=== PATIENT | male | born 1990 | race Caucasian/White ===

== ENCOUNTER 2016-09-03 17:21 | Emergency (ER) | payer SELFPAY ==
[~2016-09-03] VITALS: Ht 170.2 cm; Wt 86.2 kg
[~2016-09-03 17:21] MED LIST: HYDR-3816 PO; NAPR-243 PO; SULF1TAB35 PO; TRM50T PO
--- OUTSIDE RECORDS SUMMARY | 2016-09-03 17:26 | XMS REPORT ---
Author KULDIP Renteria e[employer] Address Unknown Phone Unavailable Care Team Providers Care National Account Executive Name Role Phone KULDIP YANG CP Unavailable Allergies, Adverse Reactions, Alerts Substance Reaction Event Type N.K.D.A. Info Not Available Non Drug Allergy Problems Problem Type Condition Code Onset Dates Condition Status Assessment Dental examination Z01.20 Active Problem Unspecified site of ankle sprain and strain 845.00 Active Problem Unspecified constipation 564.00 Active Problem Sprain and strain of unspecified site of knee and leg 844.9 Active Problem Cellulitis and abscess of unspecified site 682.9 Active Problem Closed fracture of metacarpal bone(s), site unspecified 815.00 Active Problem Esophageal reflux 530.81 Active Problem External hemorrhoids without mention of complication 455.3 Active Medications Medication Code System Code Instructions Start Date End Date Status Dosage [place] [facility] [address]-49 5-325 MG Orally every 6 hrs 1 tablet as needed Amoxicillin [facility] [id number] 500 MG Orally 4 times daily 1 capsule Procedures Procedure Coding System Code Date INTRAORL-PERIAPICAL 1 FILM 69019 CPT-4 D0220 Apr 18, 2016 BITEWING - SINGLE FILM CPT-4 D0270 Apr 18, 2016 LTD ORAL EVALUATION - PROBLEM FOCUS CPT-4 D0140 Apr 18, 2016 Billing Notes on claim CPT-4 EC109 Apr 18, 2016 Results No Known Results Summary Purpose eClinicalWorks Submission
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
[2016-09-03 17:50] LABS: MEAN PLATELET VOLUME 9.9 FL (7.4-10.4); RED BLOOD COUNT 4.2 10^6/uL (4.35-5.85); RED CELL DISTRIBUTION WIDTH 12.6 % (10.0-14.5); WHITE BLOOD COUNT 15.1 10^3/uL (4.3-11.0)
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
[2016-09-03 18:07] LABS: ALANINE AMINOTRANSFERASE 30 U/L (0-55); ALBUMIN 3.9 G/DL (3.2-4.5); ANION GAP 8 MMOL/L (5-14); ASPARTATE AMINO TRANSFERASE 21 U/L (5-34); BILIRUBIN,DIRECT 0.1 MG/DL (0.0-0.3); BILIRUBIN,INDIRECT 0.2 MG/DL; BILIRUBIN,TOTAL 0.3 MG/DL (0.1-1.0); BLOOD UREA NITROGEN 6 MG/DL (7-18); BUN/CREATININE RATIO 8; CALCIUM 8.2 MG/DL (8.5-10.1); CARBON DIOXIDE 22 MMOL/L (21-32); CHLORIDE 110 MMOL/L (98-107); CREATININE SERUM 0.78 MG/DL (0.60-1.30); GFR ESTIMATED > 60; GLUCOSE 97 MG/DL (70-105); SODIUM 140 MMOL/L (135-145); TOTAL PROTEIN 6.2 G/DL (6.4-8.2)
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
[2016-09-03 18:09] LABS: ALCOHOL < 10 MG/DL (<10)
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
[2016-09-03] MEDS ORDERED: morphine INJ 4 MG/ML 1 ML (VIAL/SYRINGE) IVP ONE (18:15)
[2016-09-03] MEDS ORDERED: morphine INJ 10 MG/ML 1ML (SYR OR VIAL) IVP ONE (18:30)
[2016-09-03 18:53] LABS: BILIRUBIN,URINE NEGATIVE (NEGATIVE); KETONES,URINE NEGATIVE (NEGATIVE); LEUKOCYTE ESTERASE ,URINE NEGATIVE (NEGATIVE); NITRITE,URINE NEGATIVE (NEGATIVE); PH,URINE 6 (5-9); PROTEIN,URINE NEGATIVE (NEGATIVE); UROBILINOGEN,URINE NORMAL (NORMAL)
[2016-09-03] MEDS ORDERED: KETOROLAC 30 MG/ML VIAL IVP ONE (19:00)
[2016-09-03] MEDS ORDERED: NAPR550T PO (19:43)
[2016-09-03] MEDS ORDERED: HYDR-3820 PO (19:43)
[2016-09-03 19:59] VITALS: BP 124/87
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
== END 2016-09-03 19:59 | disposition home or self-care (01) ==
LOC: EDUNIT# 17:21 → ER 17:22
DX: S06.9X9A Unspecified intracranial injury with loss of consciousness of unspecified duration, initial encounter (principal); S70.01XA Contusion of right hip, initial encounter; S00.81XA Abrasion of other part of head, initial encounter; S42.025A Nondisplaced fracture of shaft of left clavicle, initial encounter for closed fracture; V48.5XXA Car driver injured in noncollision transport accident in traffic accident, initial encounter; Y92.410 Unspecified street and highway as the place of occurrence of the external cause; Y99.8 Other external cause status
CPT/HCPCS: 36415; 70450; 71010; 72125; 72192; 73000; 73502; 80048; 80076; 80320; 81000; 85027; 93041; 96374; 96375

== ENCOUNTER 2016-09-10 12:27 | Emergency (ER) | payer SELFPAY ==
[~2016-09-10] VITALS: Ht 172.7 cm; Wt 86.2 kg
[~2016-09-10 12:27] MED LIST changes: +HYDR-3820 PO; +NAPR550T PO
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
[2016-09-10] MEDS ORDERED: HYDR-3820 PO (13:17)
[2016-09-10 13:22] VITALS: BP 120/89
== END 2016-09-10 13:22 | disposition home or self-care (01) ==
LOC: EDUNIT# 12:27 → ER 12:29
DX: S42.022A Displaced fracture of shaft of left clavicle, initial encounter for closed fracture (principal); F17.210 Nicotine dependence, cigarettes, uncomplicated; V43.52XA Car driver injured in collision with other type car in traffic accident, initial encounter; Y92.410 Unspecified street and highway as the place of occurrence of the external cause; Y99.8 Other external cause status
CPT/HCPCS: 73000

== ENCOUNTER 2016-09-16 05:38 | Outpatient (CLI) | payer SELFPAY ==
[~2016-09-16] VITALS: Ht 172.7 cm; Wt 86.2 kg
== END 2016-09-16 12:13 ==
LOC: PREOP 05:38
PROVIDERS: ATTEND Orthopaedic Surgery
DX: Z01.818 Encounter for other preprocedural examination (principal); S42.002A Fracture of unspecified part of left clavicle, initial encounter for closed fracture; Z22.322 Carrier or suspected carrier of Methicillin resistant Staphylococcus aureus; X58.XXXA Exposure to other specified factors, initial encounter; Y99.8 Other external cause status

== ENCOUNTER 2016-09-21 09:33 | Day surgery (SDC) | payer SELFPAY ==
[~2016-09-21] VITALS: Ht 172.7 cm; Wt 86.2 kg
[~2016-09-21 09:33] MED LIST changes: +ceFAZolin 2 GM IV (SDC ONLY) 50 ML ONE
[2016-09-21 09:57] VITALS: BP 123/89
[2016-09-21] MEDS ORDERED: MIDAZOLAM 2 MG/2 ML (VERSED) VIAL IV ONE (10:00)
[2016-09-21] MEDS ORDERED: ceFAZolin 2 GM IV (SDC ONLY) 50 ML IV ONE (10:15)
[2016-09-21] MEDS ORDERED: LIDOCAINE PF 2% 10 ML (XYLOCAINE) AMP ONE (11:07)
[2016-09-21] MEDS ORDERED: ONDANSETRON 4 MG/2 ML (SDV) Z0FRAN ONE ×2 (11:07→12:49)
[2016-09-21] MEDS ORDERED: LACTATED RINGERS 1,000 ML IV ONE ×3 (11:07→13:57)
[2016-09-21] MEDS ORDERED: ROCURONIUM 50 MG/5 ML (ZEMURON) VIAL IV ONE (11:07)
[2016-09-21] MEDS ORDERED: proPOfol 200 MG/20 ML (DIPRIVAN) VIAL IV ONE (11:07)
[2016-09-21] MEDS ORDERED: fentaNYL INJECTION 100 MCG/2 ML AMP ONE ×3 (11:08→13:39)
[2016-09-21] MEDS ORDERED: MIDAZOLAM 2 MG/2 ML (VERSED) VIAL ONE (11:08)
[2016-09-21] MEDS: LACTATED RINGERS 1,000 ML IV PRN ×3 (11:13→14:05)
--- NOTE | 2016-09-21 11:13 | Progress Note-Pre Operative ---
Pre-Operative Progress Note H&P Reviewed The H&P was reviewed, patient examined and no changes noted. Date H&P Reviewed: Sep 21, 2016 Time H&P Reviewed: 11:05 Pre-Operative Diagnosis: Displaced angulated left midshaft clavicle fracture ( closed ) KULDIP GODOY DO Sep 21, 2016 11:13
--- NOTE | 2016-09-21 11:24 | Discharge Inst-Simple/Standard ---
Discharge Inst-Standard Discharge Medications New, Converted or Re-Newed RX: RX on Chart Patient Instructions/Follow Up Plan of Care/Instructions/FU: f/u 7-10 days sling to left arm no lifting pushing or pulling with left arm may remove sling TID for dangling or pendulum exercises may remove dressing tomorrow and leave open to air may shower, washing over incision gently with water then let air dry Activity as Tolerated: No Discharge Diet: No Restrictions Return to The [facility] For: call office if there are any concerns post op MINA TREADWELL APRN Sep 21, 2016 11:24 am
[2016-09-21] MEDS ORDERED: DEXAMETHASONE PF 10 MG/ML (DECADRON) VIAL ONE (11:25)
[2016-09-21] MEDS ORDERED: GENTAMICIN 40 MG/ML 2 ML INJ SDV ONE (11:47)
[2016-09-21] MEDS ORDERED: SEVOFLURANE (ULTANE) 15 ML INHAL SOLN ONE ×7 (12:49)
[2016-09-21] MEDS ORDERED: NEO/POLY/BAC (NEOSPORIN) OINT 15 GM TUBE ONE (12:51)
--- NOTE | 2016-09-21 13:08 | Progress Note-Post Operative ---
Post-Operative Progess Note Winding Machine Operator [facility] Pre-Operative Diagnosis Displaced angulated left midshaft clavicle fracture ( closed ) Post-Operative Diagnosis same Post-Op Procedure Note Date of Procedure: Sep 21, 2016 Name of Procedure: Open Reduction Internal Fixation Midshaft left clavicle fracture Procedure Note/Findings 3 cm displaced left clavicle fx Anesthesia Type General Estimated blood loss (mL): min KULDIP GODOY DO Sep 21, 2016 13:07
--- NOTE | 2016-09-21 13:13 | Diagnostic Imaging Report ---
INDICATION: Clavicle fracture. ORIF. COMPARISON: 09/10/2016. FINDINGS: A single intraoperative image intensifier view of the left clavicle was obtained during ORIF of the left clavicle. The image provided shows satisfactory alignment of the fracture fragments. An orthopedic sideplate and screws are also noted. IMPRESSION: Fluoroscopic guidance was provided during left clavicle ORIF. Dictated by: Dictated on workstation # [id number]
[2016-09-21] MEDS ORDERED: morphine INJ 10 MG/ML 1ML (SYR OR VIAL) ONE (13:34)
[2016-09-21] MEDS: morphine INJ 10 MG/ML 1ML (SYR OR VIAL) IV PRN ×2 (13:43→13:54)
[2016-09-21] MEDS ORDERED: ONDANSETRON 4 MG/2 ML (SDV) Z0FRAN IV ONE (13:45)
[2016-09-21] MEDS: fentaNYL INJECTION 100 MCG/2 ML AMP IV PRN ×3 (13:48→14:01)
[2016-09-21] MEDS ORDERED: HYDROmorphone (DILAUDID) 2 MG/ML VIAL IV PRN (14:15)
[2016-09-21 14:35] VITALS: BP 126/91
[2016-09-21] MEDS ORDERED: HYDROcodone/APAP 10 MG/325 MG (LORTAB) TAB PO ONE ×2 (14:36→14:45)
[2016-09-21 14:45] VITALS: BP 126/91
[2016-09-21 15:05] VITALS: BP 132/90
[2016-09-21 15:35] VITALS: BP 139/92
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
== END 2016-09-21 15:45 | disposition home or self-care (01) ==
LOC: SDC 09:33
PROVIDERS: ATTEND Orthopaedic Surgery
DX: S42.022A Displaced fracture of shaft of left clavicle, initial encounter for closed fracture (principal); V89.2XXA Person injured in unspecified motor-vehicle accident, traffic, initial encounter; Y99.8 Other external cause status; F17.210 Nicotine dependence, cigarettes, uncomplicated
CPT/HCPCS: 87081

== ENCOUNTER 2017-01-26 06:04 | Outpatient (CLI) | payer OTHER ==
[~2017-01-26] VITALS: Ht 172.7 cm; Wt 104.3 kg
[~2017-01-26 06:04] MED LIST changes: -ceFAZolin 2 GM IV (SDC ONLY) 50 ML ONE
[2017-01-26 15:09] VITALS: BP 136/85
== END 2017-01-26 15:28 | disposition home or self-care (01) ==
LOC: PREOP 06:04
PROVIDERS: ATTEND Surgery
DX: Z01.818 Encounter for other preprocedural examination (principal); L05.91 Pilonidal cyst without abscess
CPT/HCPCS: 87081

== ENCOUNTER → 2017-01-30 | Day surgery (SDC) | payer OTHER ==
[~2017-01-30] VITALS: Ht 172.7 cm; Wt 104.3 kg
[~2017-01-30] MED LIST changes: +ATRACURIUM 50 MG/5 ML (TRACRIUM) IV ONE; +CATHETER FLUSH 10 ML SYR IV PRN; +DEXAMETHASONE PF 10 MG/ML (DECADRON) VIAL ONE; +HURRICAINE EXT TUBE (BENZOCAINE) ONE; +HYDROcodone/APAP 10 MG/325 MG (LORTAB) TAB PO PRN; +KETAMINE HCL 100 MG/ML 5 ML VIAL ONE; +LACTATED RINGERS 1,000 ML IV ONE; +LIDOCAINE 1% INJ 20 ML (XYLOCAINE) VIAL ONE; +LIDOCAINE PF 2% 5 ML (XYLOCAINE) VIAL ONE; +LIDOCAINE/EPI 1%-1:100,000 (XYLOCAINE) 20ML ONE; +MIDAZOLAM 2 MG/2 ML (VERSED) VIAL ONE; +ONDANSETRON 4 MG/2 ML (SDV) Z0FRAN IVP PRN; +ONDANSETRON 4 MG/2 ML (SDV) Z0FRAN ONE; +SEVOFLURANE (ULTANE) 15 ML INHAL SOLN ONE; +ceFAZolin 2 GM/50 ML NS 50 ML ONE; +ceFAZolin 2 GM/NS 50 ML IV ONE; +fentaNYL INJECTION 100 MCG/2 ML AMP ONE; +morphine INJ 10 MG/ML 1ML (SYR OR VIAL) ONE; +proPOfol 200 MG/20 ML (DIPRIVAN) VIAL IV ONE
[2017-01-30 11:11] VITALS: BP 137/82
[2017-01-30] MEDS: LACTATED RINGERS 1,000 ML IV PRN ×3 (11:20→15:20)
--- NOTE | 2017-01-30 14:49 | Progress Note-Pre Operative ---
Pre-Operative Progress Note H&P Reviewed The H&P was reviewed, patient examined and no changes noted. Date Seen by Provider: Jan 30, 2017 Time Seen by Provider: 14:46 Date H&P Reviewed: Jan 30, 2017 Time H&P Reviewed: 14:46 Pre-Operative Diagnosis: pilonidal cyst TRISH BAEZA DO Jan 30, 2017 14:49
--- NOTE | 2017-01-30 15:38 | Progress Note-Post Operative ---
Post-Operative Progess Note Surgeon (s)/Evaluation Manager (s) Surgeon TRISH BAEZA DO Evaluation Manager: none Pre-Operative Diagnosis pilonidal cyst Post-Operative Diagnosis Recurrent pilondial cyst Procedure & Operative Findings Date of Procedure 01/30/17 Procedure Performed/Findings Excision of pilonidal cyst, with packing and debridement Anesthesia Type GET Estimated Blood Loss Estimated blood loss (mL): less than 10ml Specimens/Packing Specimens Removed pilonidal cyst inflammatory tissue Packin inch iodophor packing TRISH BAEZA DO Jan 30, 2017 15:38
--- NOTE | 2017-01-30 15:41 | Discharge Inst-Surgical ---
Discharge Inst-Surgical Depart Medication/Instructions New, Converted or Re-Newed RX: RX Given to Pt/Family Patient Instructions Follow up Appt: Make appointment for 1 week. Instructions: No strenuous activity. May shower in 24 hours. Ok to do sitz or tub bath (soaking); after packing comes out. Use incentive spirometer at home as directed. No Smoking Skin/Wound Care: May remove bandages. Symptoms to Report: Appetite Changes, Extremity Discoloration, Numbness/Tingling, Swelling Increased , Bleeding Excessive, Eyesight Changes, Pain Increased, Urine Color Change, Constipation(Persistent), Fever over 101 degree F, Pain/Pressure in chest, Urinating Difficulty, Cough Up/Vomit Blood, Heart Beat Irreg/Pounding, Pain/ Pressure in jaw, Vaginal Bleeding Increase, Cramps in feet or legs, Lightheadedness, Pain/Pressure in shoulder, Diarrhea(Persistent), Memory Changes Suddenly, Questions/Concerns, Weight gain consecutive days, Dizziness/ Fainting, Nausea/Vomiting, Shortness of Breath, Weight gain over 2 pounds If questions or concerns contact your physician Or seek help at emergency department. Activity Activity as Tolerated: Yes Activity Instructions: Avoid Pulling & Pushing, Avoid Stress to Incision, No Sports Driving Instructions: No Driving/Refer to Dr. Rey Discharge Diet: No Restrictions If Any Problems/Questions/Issu: Contact Your Physician, Go to Emergency Room Skin/Wound Care Infection Signs and Symptoms: Increased Redness, Foul Odor of Wound, Increased Drainage, Skin Itchy or Has a Rash, Increased Swelling, Temperature Above 101 F TRISH BAEZA DO Jan 30, 2017 15:41
[2017-01-30] MEDS: morphine INJ 10 MG/ML 1ML (SYR OR VIAL) IVP PRN ×2 (15:52→15:58)
[2017-01-30] MEDS: HYDROmorphone (DILAUDID) 2 MG/ML VIAL IVP PRN ×2 (16:10→16:21)
[2017-01-30 16:37] VITALS: BP 109/64
[2017-01-30 17:05] VITALS: BP 130/87
[2017-01-30 17:30] VITALS: BP 124/79
[2017-01-30 17:35] VITALS: BP 124/79
--- NOTE | 2017-01-31 11:58 | OPERATIVE REPORT ---
DATE OF SERVICE: 01/30/2017 PREOPERATIVE DIAGNOSIS: Recurrent pilonidal cyst. POSTOPERATIVE DIAGNOSIS: Recurrent pilonidal cyst with fluid cavity. SURGEON: Dr. Melvin THURSTON ASSIST: None. ANESTHESIA: General endotracheal tube. SPECIMEN: Pilonidal cyst. BLOOD LOSS: Less than 5 cc. INDICATION FOR PROCEDURE: Patient is a 26-year-old male who has been having some drainage from the gluteal cleft. He had previous pilonidal cyst excision, but appears it has come back. FINDINGS: Patient had 2 areas, 1 above and 1 below. They were connections to a deep pocket that had fluid in it. It did not look purulent, but patient states it has drained "pus" before. PROCEDURE NOTE: After informed consent was obtained, patient was brought the operating room. He was intubated and then placed onto the table in a prone position. He was then sterilely prepped and draped in normal fashion. Local lidocaine was used to infiltrate around the 2 areas. There was a larger hole at the superior portion of the previous incision. An elliptical incision was made around this and then down lower at the base of the incision was the 2 small openings. I elected to do a small circular incision. After infiltrating with local, I started at the top and made an elliptical incision and then dissected down around the cyst tract, down and encountered a large pocket of fluid and necrotic tissue. Able to open this up and remove this portion of tissue and then started down below and made a small circular incision and then took this tract all the way down to the same pocket; they connected. Then, roughly debrided with sponge and 4 x 4s, as well as Bovie electrocautery. I flushed this out numerous times. I tried to cut out any necrotic tissue. This, unfortunately, left an opening. I had spoken to the patient before; we are going to let this heal by secondary intent. There was a large bridge of tissue; however, this was good tissue that healed well and I did not believe it needed to be opened, so I elected to just leave this open with a bridge over the top and placed a 1 inch iodoform packing with 1 end brought out the lower incision and the other end brought out the superior portion. This area was then cleaned, dried, pressure dressing was placed and patient then transferred to recovery room in stable condition. Sponge, instrument and needle counts correct at the end of the case. Job ID: [id number] DocumentID: [id number] Dictated Date: 01/31/2017 10:25:12 [employer] Blocks Press Operator Date: 01/31/2017 11:58:08 Dictated By: TRISH BAEZA DO
== END ==
LOC: SDC 10:45
PROVIDERS: ATTEND Surgery
DX: L05.91 Pilonidal cyst without abscess (principal); F17.210 Nicotine dependence, cigarettes, uncomplicated

== ENCOUNTER 2018-12-04 17:10 | Emergency (ER) | payer SELFPAY ==
[~2018-12-04] VITALS: Ht 170.2 cm; Wt 85.3 kg
[~2018-12-04 17:10] MED LIST changes: -ATRACURIUM 50 MG/5 ML (TRACRIUM) IV ONE; -CATHETER FLUSH 10 ML SYR IV PRN; -DEXAMETHASONE PF 10 MG/ML (DECADRON) VIAL ONE; -HURRICAINE EXT TUBE (BENZOCAINE) ONE; +HYDR-34 PO; -HYDR-3816 PO; -HYDROcodone/APAP 10 MG/325 MG (LORTAB) TAB PO PRN; -KETAMINE HCL 100 MG/ML 5 ML VIAL ONE; -LACTATED RINGERS 1,000 ML IV ONE; -LIDOCAINE 1% INJ 20 ML (XYLOCAINE) VIAL ONE; -LIDOCAINE PF 2% 5 ML (XYLOCAINE) VIAL ONE; -LIDOCAINE/EPI 1%-1:100,000 (XYLOCAINE) 20ML ONE; -MIDAZOLAM 2 MG/2 ML (VERSED) VIAL ONE; +MOME15CR17 TP; +NAPR-1070 PO; -NAPR550T PO; -ONDANSETRON 4 MG/2 ML (SDV) Z0FRAN IVP PRN; -ONDANSETRON 4 MG/2 ML (SDV) Z0FRAN ONE; +PRD10T PO; +RANI150T46 PO; -SEVOFLURANE (ULTANE) 15 ML INHAL SOLN ONE; -ceFAZolin 2 GM/50 ML NS 50 ML ONE; -ceFAZolin 2 GM/NS 50 ML IV ONE; -fentaNYL INJECTION 100 MCG/2 ML AMP ONE; -morphine INJ 10 MG/ML 1ML (SYR OR VIAL) ONE; -proPOfol 200 MG/20 ML (DIPRIVAN) VIAL IV ONE
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
[2018-12-04] MEDS ORDERED: METH4TAB PO (17:23)
[2018-12-04 17:31] VITALS: BP 127/95
== END 2018-12-04 17:31 | disposition home or self-care (01) ==
LOC: EDUNIT# 17:10 → ER 17:11
DX: G56.03 Carpal tunnel syndrome, bilateral upper limbs (principal); F17.210 Nicotine dependence, cigarettes, uncomplicated; Z79.52 Long term (current) use of systemic steroids; Z98.890 Other specified postprocedural states
CPT/HCPCS: 99282

== ENCOUNTER 2020-01-03 18:22 | Emergency (ER) | payer MEDICAID ==
[~2020-01-03] VITALS: Ht 172.7 cm; Wt 90.9 kg
[~2020-01-03 18:22] MED LIST changes: +ACHYD1T PO; -HYDR-3820 PO; +METH4TAB PO; -MOME15CR17 TP; +MOME15CR8 TP; +RANI-613 PO; -RANI150T46 PO
[2020-01-03 18:30] VITALS: BP 123/63
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
[2020-01-03] MEDS ORDERED: TETANUS,DIPTH,PERTUSS P/F (BOOSTRIX) 0.5 ML VIAL IM ONE (18:45)
[2020-01-03] MEDS ORDERED: CEPH-507 PO (18:49)
== END 2020-01-03 18:56 | disposition home or self-care (01) ==
LOC: EDUNIT# 18:22 → ER 18:25
DX: L03.116 Cellulitis of left lower limb (principal); F17.210 Nicotine dependence, cigarettes, uncomplicated; Z79.52 Long term (current) use of systemic steroids; Z23 Encounter for immunization
CPT/HCPCS: 90471; 90715; 99284

== ENCOUNTER 2020-08-22 09:14 | Emergency (ER) | payer MEDICAID ==
[~2020-08-22] VITALS: Ht 175.3 cm; Wt 90.9 kg
[~2020-08-22 09:14] MED LIST changes: +CEPH-507 PO
[2020-08-22 10:06] LABS: BILIRUBIN,URINE NEGATIVE (NEGATIVE); CLARITY,URINE CLEAR; COLOR,URINE YELLOW; GLUCOSE, URINE (UA) NEGATIVE (NEGATIVE); KETONES,URINE NEGATIVE (NEGATIVE); LEUKOCYTE ESTERASE ,URINE NEGATIVE (NEGATIVE); NITRITE,URINE NEGATIVE (NEGATIVE); PH,URINE 5.5 (5-9); PROTEIN,URINE TRACE (NEGATIVE)
[2020-08-22] MEDS ORDERED: LIDOCAINE 1% INJ 20 ML 20 ML VIAL INJ ONE ×2 (10:15→11:15)
[2020-08-22] MEDS ORDERED: BUPIVACAINE 0.5% 30 ML (SENSORCAINE) VIAL INJ ONE (10:15)
[2020-08-22 10:23] LABS: AMORPHOUS SEDIMENT,UR FEW AMOR URATES /LPF; BACTERIA,URINE NEGATIVE /HPF; RBC,URINE RARE /HPF; SQUAMOUS EPITHELIAL CELL,UR 0-2 /HPF; WBC,URINE 0-2 /HPF
[2020-08-22] MEDS ORDERED: cefTRIAXone 1,000 MG/2.86 ml vial (IM ONLY) IM STA (11:06)
[2020-08-22] MEDS ORDERED: AZITHROMYCIN 250 MG TAB (ZITHROMAX) PO ONE (11:28)
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
[2020-08-22 11:48] LABS: BODY FLUID APPEARENCE MKD CLDY; BODY FLUID COLOR YELLOW; BODY FLUID SOURCE SYNOVIAL
[2020-08-22 11:49] LABS: BODY FLUID RBC COUNT 3000 /uL; BODY FLUID WBC TOTAL COUNT 22625 /uL
[2020-08-22 12:07] VITALS: BP 136/81
[2020-08-22 12:08] LABS: LYMPHOCYTES,BODY FLUID 10 %
[2020-08-22] MEDS ORDERED: TRM50T PO (12:11)
[2020-08-23] MEDS ORDERED: AZITHROMYCIN 250 MG TAB (ZITHROMAX) PO SCH (09:00)
== END 2020-08-22 12:07 | disposition home or self-care (01) ==
LOC: EDUNIT# 09:14 → ER 09:19
DX: A54.42 Gonococcal arthritis (principal); F17.210 Nicotine dependence, cigarettes, uncomplicated; Z79.52 Long term (current) use of systemic steroids
CPT/HCPCS: 81000; 87070; 87205; 89051

== ENCOUNTER 2020-08-23 20:34 | Emergency (ER) | payer MEDICAID ==
[~2020-08-23] VITALS: Ht 175 cm; Wt 90.9 kg
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
[2020-08-23] MEDS ORDERED: cefTRIAXone 1,000 MG/2.86 ml vial (IM ONLY) IM SCH (21:15)
[2020-08-23 21:23] VITALS: BP 120/79
== END 2020-08-23 21:26 | disposition home or self-care (01) ==
LOC: EDUNIT# 20:34 → ER 20:37
DX: A54.42 Gonococcal arthritis (principal); M25.462 Effusion, left knee; Z79.52 Long term (current) use of systemic steroids
CPT/HCPCS: 99284

== ENCOUNTER 2022-08-26 03:05 | Emergency (ER) | payer MEDICAID ==
[~2022-08-26] VITALS: Ht 175 cm; Wt 90.9 kg
[~2022-08-26 03:05] MED LIST changes: -SULF1TAB35 PO; +SULF1TAB38 PO
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
[2022-08-26] MEDS ORDERED: HYDROcodone/APAP 7.5MG-325 MG/15 ML (LORTAB) UDC PO STA (03:20)
[2022-08-26] MEDS ORDERED: PEN G BENZ (BICILLIN LA) 1.2 M UN/2 ML SYR IM ONE (03:30)
[2022-08-26] MEDS ORDERED: HURRICAINE EXT TUBE (BENZOCAINE) XX ONE (03:30)
[2022-08-26] MEDS ORDERED: LIDOCAINE/EPI 2% 1:100,00 (XYLOCAINE) 20 ML VIAL INJ ONE (03:45)
[2022-08-26] MEDS ORDERED: morphine INJ 10 MG/ML 1ML (SYR OR VIAL) IM STA (04:33)
[2022-08-26] MEDS ORDERED: CLINDAMYCIN 150 MG (CLEOCIN) CAP PO ONE (04:45)
[2022-08-26] MEDS ORDERED: CLIN-144 PO (05:00)
[2022-08-26] MEDS ORDERED: HYDR118S10 PO (05:00)
[2022-08-26] MEDS ORDERED: NS IV 1000 ML 1,000 ML IV SCH (06:15)
[2022-08-26 06:29] LABS: BASOPHILS # (AUTO) 0.1 10^3/uL (0.0-0.1); BASOPHILS % (AUTO) 0 % (0-10); EOSINOPHILS % (AUTO) 0 % (0-10); HEMATOCRIT 43 % (40-54); HEMOGLOBIN 14.7 g/dL (13.3-17.7); LYMPHOCYTES # (AUTO) 1.2 10^3/uL (1.0-4.0); LYMPHOCYTES % (AUTO) 3 % (12-44); MEAN CORPUSCULAR HEMOGLOBIN 31 pg (25-34); MEAN CORPUSCULAR HGB CONC 34 g/dL (32-36); MEAN CORPUSCULAR VOLUME 90 fL (80-99); MEAN PLATELET VOLUME 9.1 fL (9.0-12.2); MONOCYTES # (AUTO) 1.2 10^3/uL (0.0-1.0); MONOCYTES % (AUTO) 4 % (0-12); NEUTROPHILS # (AUTO) 30.7 10^3/uL (1.8-7.8); NEUTROPHILS % (AUTO) 91 % (42-75); PLATELET COUNT 375 10^3/uL (130-400)
[2022-08-26 06:31] LABS: WHITE BLOOD COUNT 33.7 10^3/uL (4.3-11.0)
[2022-08-26 06:37] LABS: POTASSIUM 4.4 MMOL/L (3.6-5.0)
[2022-08-26 06:38] LABS: CALCIUM 9.5 MG/DL (8.5-10.1)
[2022-08-26 06:42] LABS: CREATININE SERUM 0.98 MG/DL (0.60-1.30)
[2022-08-26 06:45] LABS: BAND NEUTROPHILS 5 %; LYMPHOCYTES % (MANUAL) 3 %; METAMYELOCYTES % 1 %; MONOCYTES % (MANUAL) 7 %; NEUTROPHILS % (MANUAL) 85 %
[2022-08-26 06:46] LABS: RBC MORPH NORMAL
[2022-08-26] MEDS ORDERED: IOHEXOL 350 MG/ML 100 ML (OMNIPAQUE 350) VIAL IV ONE (07:00)
[2022-08-26] MEDS ORDERED: CATHETER FLUSH 10 ML SYR IV PRN (07:00)
[2022-08-26] MEDS ORDERED: NS 100 ML (IVPB) BAG IV ONE (07:00)
--- NOTE | 2022-08-26 07:49 | Diagnostic Imaging Report ---
PROCEDURE: CT neck soft tissue with contrast. TECHNIQUE: Multiple contiguous axial images were obtained through the neck after the administration of contrast. Auto Exposure Controls were utilized during the CT exam to meet ALARA standards for radiation dose reduction. INDICATION: Question peritonsillar abscess. Right-sided throat pain for last 2 days. EXAMINATION: CT soft tissue neck with contrast 08/26/2022. FINDINGS: Within the right peritonsillar soft tissues, there is a large heterogeneous fluid collection with peripheral enhancement which is somewhat ill-defined but measures approximately 2.5 x 2.2 x 2 cm in size. There is diffuse surrounding fat stranding and soft tissue prominence with multiple smaller cystic areas in the region likely all small abscesses. Findings cause mass effect and midline shift upon the oropharynx and hypopharynx towards the left. Thickened heterogeneous soft tissues track inferior to the lesion along the right aspect of the neck to the level of the submandibular gland likely reactive inflammatory change. Some fluid is seen without discrete peripheral enhancing wall at this time. There is edema/fluid tracking into the retropharyngeal soft tissues as well with heterogeneous fluid surrounding the right pharyngeal recesses. An early developing abscess deep to the right aspect of the fibrocartilage is not excluded. More proximal to the larger abscess, there is thickening of the adenoidal tissue. This is more pronounced on the right. There is diffuse bilateral right worse than left lymphadenopathy throughout the neck. Thyroid unremarkable. Orbits and post septal spaces unremarkable. Visualized upper chest and lungs within the anterolateral right upper lobe there is a small subpleural nodule 5 mm in size. It is uncertain etiology. There is no acute osseous abnormality. IMPRESSION: 1. Abscess within the right peritonsillar soft tissues with multifocal smaller fluid collections in the surrounding soft tissues suspicious for smaller abscesses. Findings cause mass effect and midline shift upon the oropharynx and hypopharynx. 2. Not mentioned in body of the report, although there is mass effect upon the oropharynx and hypopharynx, there is no evidence for significant stenosis or obstruction of the proximal airway. More distally, at the level of the hyoid, there is focal narrowing of the proximal trachea which could be due to timing of imaging, but clinical correlation with patient's symptoms recommended. 3. Diffuse fat stranding and fluid tracking deep and posteriorly into the soft tissues of the neck into the retropharyngeal region likely due to inflammatory and reactive change. Phlegmonous change not excluded deep to the right aspect of the cricoid level. 4. Reactive adenopathy. 5. Nonspecific right lung subpleural nodule which could be followed using Fleischner criteria. Dictated by: Dictated on workstation # [id number]
[2022-08-26 09:31] VITALS: BP 138/89
== END 2022-08-26 09:31 | disposition home or self-care (01) ==
LOC: EDUNIT# 03:05 → ER 03:08
DX: J36 Peritonsillar abscess (principal); Z28.310 Unvaccinated for COVID-19
CPT/HCPCS: 36415; 70491; 80048; 85007; 85027; 87070; 87077; 87205; 96372; 96374